=== PATIENT | female | born 1975 | race Caucasian/White ===

== ENCOUNTER 2024-02-02 08:26 | Outpatient (AMB) | payer OTHER, SELFPAY ==
--- NOTE | 2024-02-02 08:35 | MHC.OFFWIV ---
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 While every effort has been made to ensure accuracy, measuring machine operator errors may have been included. The patient is a 48 year old female who presents to the clinic today with three-month history of intermittent dizziness. She notes that she is chronically treated for hypothyroid and is overdue for her labs which she plans to obtained today. She follows her PCP, but is delayed on follow-up due to her PCP changing locations where she works. She did obtain an appointment with her PCP for next month. She notes that she works out 3 to 5 times a week, working out does not seem to exacerbate the symptoms. At 1st she thought it was a dehydration situation, so she did increase her hydration which did not seem to improve the symptoms. She denies chest pain, room spinning, confusion, headache. She notes she had been on the generic Ozempic starting in September, but has been off of that for the last 2 months. Symptoms are continuing despite being off the medication. She also notes that between Ozempic and working out, she has lost a lot of weight, but has not had her levothyroxine dose adjusted due to not having labs quite yet. [facility] Social History Patient Tobacco Use Status: Never used Tobacco Review of Systems Const All systems reviewed & are unremarkable except as noted in HPI and below Physical Exam Vital Signs: Last Vital Signs Temp 97.9 F 02/02/24 08:36 Pulse 70 02/02/24 08:36 BP 118/72 02/02/24 08:36 Pulse Ox 98 02/02/24 08:36 BMI result Body Mass Index 30.4 Const General: cooperative, healthy appearing, comfortable, no acute distress and alert Orientation/consciousness: patient oriented x3 Limitations: no limitations HEENT Head: Yes normal to inspection and Yes normocephalic Ears: hearing grossly normal bilaterally General nose exam: Normal external nose present Face and sinus: Yes normal facial exam and Yes sinuses nontender Mouth: Normal oral and palatal mucosa present and tongue normal Teeth and gingiva: dentition normal Throat: Yes posterior oropharynx normal Eyes General: appearance normal, both eyes and all related structures Neck Neck: Yes normal visual inspection, Yes full ROM and Yes no lymphadenopathy Resp Effort & Inspection: normal respiratory effort and able to speak in complete sentences Auscultation: clear to auscultation bilaterally Cardio Jugular venous distension: no JVD Palpation: normal PMI Rate: regular rate Heart sounds: S1 normal heart sound present, S2 normal heart sound present, no click, no gallops, no murmurs and no rubs GI Inspection: Yes normal to inspection Palpation (GI): Soft to palpation and nontender Percussion: Yes normal to percussion Auscultation: normal bowel sounds Skin General skin exam: no rashes or lesions noted, elasticity normal and turgor normal Neuro General: patient oriented x3, CN's II-XI intact bilaterally and [place] Hallpike (Positive, horizontal nystagmus present.) Extrem General: Yes normal to inspection, Yes full ROM, Yes capillary refill normal and Yes normal exam except as noted Psych Appearance: grossly normal Mental Status: mental status grossly normal Speech and movement: Normal speech and movement present Affect: normal affect Assessment & Plan Assessment & Plan (1) Vertigo: Code(s): R42 - Dizziness and giddiness Plan: Advised obtaining thyroid labs as previously ordered by PCP, plans to do this today. Discussed multitude of potential causes, she will continue to follow with PCP as planned. We will treat symptomatically with meclizine p.r.n. advised ER with on resolving dizziness, chest pain, palpitations. Plan See above for full details and plan. Medications: New meclizine 12.5 mg PO TID 5 days PRN 15 tabs 0RF dizziness Coding Level of Care Code New Pt Level 3 (54227) Diagnoses Vertigo R42
[2024-02-02 08:36] VITALS: BP 118/72; PULSE 70; TEMP 36.6; O2SAT 98; BMI 30.4
== END 2024-02-02 09:07 | disposition home or self-care (01) ==
PROVIDERS: PCP Internal Medicine; Visit Provider Registered Nurse
DX: R42 Dizziness and giddiness (principal)
CPT/HCPCS: 99203

== ENCOUNTER 2024-02-17 14:35 | Outpatient (AMB) | payer OTHER, SELFPAY ==
--- NOTE | 2024-02-17 14:43 | A.OFFPC_ITS ---
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 Allergies cefaclor [From Ceclor] Allergy (Mild, Verified 02/17/24 14:48) Hives propranolol Allergy (Mild, Verified 02/17/24 14:48) Vomiting Tobacco use date assessed: 02/17/24 Dental Screening Dental Screen Date: 02/17/24 Did you have a dental visit in the last 12 months?: Yes Did you have a dental problem in the last 6 months where you did not have access to dental care?: No Was dental information given to patient?: Patient has dentist HPI HPI Comments History of Present Illness Details Patient is a 42 female with a past medical history with cervical radiculopathy, right knee pain, right elbow pain, history of BA, history of thyroid cancer presenting for follow-up She has been dizzy lately. She fell recently and injured her left shoulder. She broke the right thumb. She had xray of the left shoulder which did no identify any fracture. She has limited mobility and stregnth of the left shoulder. difficult raising the arm She was seen by Dr Johnson yesterday. Explains the dizziness as vertigo. Increases with rotations of the head, bending over/getting up, Denies lighteadedness. Denies chest pain, palpitations. Does endorse a few headaches per month which is mostly left sided. Reports last vision check 2 years ago. Chronic pain OA -knee pain she follows with [facility] for knee pain. She has received injections in the past. She has had MRI in the past. At her last visit she asked for a referral to [facility] to review MRI. Neck pain: History of ACDF at C5-C6 and C6-C7. She continues with paranoid spine and support. She has seen [facility], undergone PT, facet injections. Has gabapentin. Not taking tramadol. She is also taking ibuprofen extra-strength Tylenol daily. We repeated the MRI of her cervical spine. Impression unchanged with previous study. Neurosurgery was seen and do not see any role for surgical intervention. 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 History of carpal tunnel. She has had an injection of the right elbow but advised against another because it looked like there was some muscular atrophy. Hypothyroid: Post surgical papillary thyroid cancer. Now following with Endocrine. On levothyroxine. TSH 01/2024 was 0 5 Mammogram: Was ordered Cologuard ROS see HPI PHYSICAL EXAM: GENERAL: Alert and oriented x 3. NAD EYES: EOMI. Anicteric. HENT: Moist mucous membranes. No scleral icterus. No cervical lymphadenopathy. LUNGS: Clear to auscultation bilaterally. CARDIOVASCULAR: Regular rate and rhythm. No murmur. No JVD. ABDOMEN: Soft, non-tender +bs EXTREMITIES: No edema. Non-tender. MSK: unable to abduct left arm SKIN: No rashes or lesions. Warm. NEUROLOGIC: No focal neurological deficits. CN II-XII grossly intact PSYCHIATRIC: Cooperative. Appropriate mood and affect [facility] Surgical History Hx of spinal fusion Hx of tubal ligation History of carpal tunnel release Hx of thyroidectomy Hx of cholecystectomy Social History Housing: Apartment Patient Tobacco Use Status: Never used Tobacco Current occupational status: employed Cognitive needs: No Hearing needs: No Vision needs: Yes Questionnaire AUDIT C Alcohol Use Questionnaire (AUDIT-C) 1. How often do you have a drink containing alcohol?: Monthly or less 2. How many drinks containing alcohol do you have on a typical day when you are drinking?: 1 or 2 3. How often do you have six or more drinks on one occasion?: Never Total Score: 1 Score Reviewed/Action Taken: No Physical exam (Primary Care) Vital Signs: Last Vital Signs Pulse 84 02/17/24 14:45 BP 126/82 02/17/24 14:45 Pulse Ox 98 02/17/24 14:45 Oxygen Delivery Method Room Air 02/17/24 14:45 BMI result Body Mass Index 32.1 Tobacco/Smoking Status: Tobacco use Status Tobacco use date assessed 02/17/24 02/17/24 14:56 Patient Tobacco Use Status Never used Tobacco 02/17/24 14:44 Assessment and Plan Assessment & Plan (1) Left arm pain: Code(s): M79.602 - Pain in left arm (2) Left arm weakness: Code(s): R29.898 - Other symptoms and signs involving the musculoskeletal system Plan: Continue left shoulder pain Following with orthopedics Limited strength and mobility. PT as tolerated. MRI ordered (3) Left shoulder pain: Code(s): M25.512 - Pain in left shoulder Qualifiers: Chronicity: acute Qualified Code(s): M25.512 - Pain in left shoulder (4) Vertigo: Code(s): R42 - Dizziness and giddiness Plan: MRI brain given headaches, vertigo Referral to vestibular rehab Recommend updating vision exam (5) New onset of headaches: Code(s): R51.9 - Headache, unspecified Orders: Orders MR shoulder LT wo con 02/17/24 M25.512 - Pain in left shoulder, M79.602 - Pain in left arm, R29.898 - Other symptoms and signs involving the musculoskeletal system, W19.XXXA - Unspecified fall, initial encounter PT Evaluation and Treatment 02/17/24 M25.512 - Pain in left shoulder, M79.602 - Pain in left arm, R29.898 - Other symptoms and signs involving the musculoskeletal system, W19.XXXA - Unspecified fall, initial encounter MR head/brain wo con 02/17/24 R42 - Dizziness and giddiness, R51.9 - Headache, unspecified Coding Level of Care Code Est Pt Level 5 (08353) Diagnoses Left arm pain M79.602 Left arm weakness R29.898 Acute pain of left shoulder M25.512 Chronicity: acute Vertigo R42 New onset of headaches R51.9
[2024-02-17 14:45] VITALS: BP 126/82; PULSE 84; O2SAT 98; BMI 32.1
== END 2024-02-17 15:39 | disposition home or self-care (01) ==
PROVIDERS: PCP Internal Medicine; Visit Provider Internal Medicine
DX: M79.602 Pain in left arm (principal); R29.898 Other symptoms and signs involving the musculoskeletal system; M25.512 Pain in left shoulder; R42 Dizziness and giddiness; R51.9 Headache, unspecified
CPT/HCPCS: 99214

== ENCOUNTER 2024-03-22 18:49 | Outpatient (REF) | payer OTHER, SELFPAY ==
--- NOTE | ~2024-03-22 | MR_ITS ---
MRI OF THE BRAIN WITHOUT IV CONTRAST INDICATION: Dizziness. COMPARISON: None available. TECHNIQUE: Multiplanar multisequence MR imaging of the brain was obtained without IV contrast. FINDINGS: There is no hydrocephalus, extra-axial surface collection, or herniation. No parenchymal signal abnormality. The major flow voids at the skull base are preserved. There is no acute infarct on diffusion-weighted imaging. There is no intracranial hemorrhage on the gradient recalled echo acquisition. The midline structures are normal. The cerebellar tonsils are normally positioned. The cerebellum and brainstem are normal. The craniocervical junction is normal. Osseous marrow signal intensity is homogenous. The visualized soft tissues are unremarkable. MR/MR head/brain wo con IMPRESSION: Unremarkable noncontrast MRI of the brain. Electronically signed by: Ayan Arthur MD 04/09/2024 01:19 PM EDT
== END 2024-03-22 18:50 | disposition home or self-care (01) ==
LOC: HO.MRI 18:49
PROVIDERS: PCP Internal Medicine; Visit Provider Internal Medicine
DX: R42 Dizziness and giddiness (principal); R51.9 Headache, unspecified
CPT/HCPCS: 70551

== ENCOUNTER 2024-08-07 09:13 | Outpatient (AMB) | payer OTHER, SELFPAY ==
--- NOTE | 2024-08-07 09:49 | A.OFFPC_ITS ---
Vital Signs 08/07/24 09:57 Height 5 ft 4 in Weight 198 lb BMI 34.0 BP 116/80 Blood Pressure Location Rt brachial Position Sitting Pulse 83 Pulse Source Pulse Oximeter Temp 98 F Temp Source Oral Pulse Oximetry (%) 99 Oxygen Delivery Method Room Air Intake Visit Reasons: hair loss Intake Note: Hair loss. Sore's in mouth and sore throat. Allergies cefaclor [From Ceclor] Allergy (Mild, Verified 08/07/24 09:57) Hives propranolol Allergy (Mild, Verified 08/07/24 09:57) Vomiting Tobacco use date assessed: 02/17/24 Dental Screening Dental Screen Date: 02/17/24 HPI HPI Comments History of Present Illness Details Patient is a 42 female with a past medical history with cervical radiculopathy, right knee pain, right elbow pain, history of OA, history of thyroid cancer presenting for follow-up Sore throat, tongue blistering x one week. Chronic hard spot on the right lat eral to the tip of the tongue Chronic pain OA -knee pain she follows with [facility] for knee pain. She has received injections in the past. She has had MRI in the past. At her last visit she [facility]. Neck pain: History of ACDF at C5-C6 and C6-C7. She continues with paranoid spine and support. She has seen [facility], undergone PT, facet injections. Has gabapentin. Not taking tramadol. She is also taking ibuprofen extra-strength Tylenol daily. We repeated the MRI of her cervical spine. Impression unchanged with previous study. Neurosurgery was seen and do not see any role for surgical intervention. 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 History of carpal tunnel. She has had an injection of the right elbow but advised against another because it looked like there was some muscular atrophy. -Shoulder pain -followed with Dr Johnson Hypothyroid: Post surgical papillary thyroid cancer. Now following with [facility]. On levothyroxine. Vertigo: Lessened. MRI brain 03/2024 was unremarkable. Mammogram: Was ordered Cologuard ROS see HPI PHYSICAL EXAM: GENERAL: Alert and oriented x 3. NAD EYES: EOMI. Anicteric. HENT: Moist mucous membranes. No scleral icterus. No cervical lymphadenopathy. LUNGS: Clear to auscultation bilaterally. CARDIOVASCULAR: Regular rate and rhythm. No murmur. No JVD. ABDOMEN: Soft, non-tender +bs EXTREMITIES: No edema. Non-tender. MSK: unable to abduct left arm SKIN: No rashes or lesions. Warm. NEUROLOGIC: No focal neurological deficits. CN II-XII grossly intact PSYCHIATRIC: Cooperative. Appropriate mood and affect [facility] Surgical History Hx of spinal fusion Hx of tubal ligation History of carpal tunnel release Hx of thyroidectomy Hx of cholecystectomy Social History Housing: Apartment Patient Tobacco Use Status: Never used Tobacco Current occupational status: employed Cognitive needs: No Hearing needs: No Vision needs: Yes Questionnaire PHQ-9 Over the last 2 weeks, how often have you been bothered by any of the following problems? 1. Little interest or pleasure in doing things: not at all 2. Feeling down, depressed, or hopeless: not at all 3. Trouble falling or staying asleep, or sleeping too much: not at all 4. Feeling tired or having little energy: several days 5. Poor appetite or overeating: several days 6. Feeling bad about yourself - or that you are a failure or have let yourself or your family down: not at all 7. Trouble concentrating on things, such as reading the newspaper or watching television: not at all 8. Moving or speaking so slowly that other people could have noticed. Or the opposite - being so fidgety or restless that you have been moving around a lot more than usual: not at all 9. Thoughts that you would be better off or of hurting yourself in some way: not at all Total score: 2 Source: Developed by Drs. Jb Smith, Megan Knott, Mg Johnson and colleagues, with an educational eddie from [employer]. Thrive Questionnaire I am a: Patient What is your living situation today?: I have a steady place to live Within the past 12 months, did the food you bought not last and you didn't have the money to get more?: Never true Within the past 12 months, did you worry whether your food would run out before you got money to buy more?: Never true Do you have trouble paying for medicines?: No Do you have trouble getting transportation to medical appointments?: No Do you have trouble paying your heating and electricity bill?: No Do you have trouble taking care of your child, family member or friend?: No Do you have trouble with day-to-day activities such as bathing, preparing meals, shopping, managing finances, etc.?: No Are you currently unemployed and looking for a job?: No Are you interested in more education?: No Please select the resources that you would like help with: None Currently or been in a relationship where the following occur: I choose not to answer THRIVE Score: 0 AUDIT C Alcohol Use Questionnaire (AUDIT-C) 1. How often do you have a drink containing alcohol?: 2-3 times a week 2. How many drinks containing alcohol do you have on a typical day when you are drinking?: 1 or 2 3. How often do you have six or more drinks on one occasion?: Never Total Score: 3 EDEMLIRA-7 AMB Questionnaire EDELMIRA-7 Feeling nervous, anxious, or on edge: 1 = Several days Not being able to stop or control worryin = Several days Worrying too much about different things: 0 = Not at all Trouble relaxin = Several days Being so restless that it is hard to sit still: 0 = Not at all Becoming easily annoyed or irritable: 1 = Several days Feeling afraid as if something awful might happen: 0 = Not at all Total EDELMIRA-7 score (0-4 normal; 5-9 mild; 10-14 moderate; 15-21 severe): 4 Source: Developed by Drs. Jb Smith, Megan Knott, Mg Johnson and colleagues, with an educational eddie from [employer]. Physical exam (Primary Care) Vital Signs: Last Vital Signs Temp 98 F 08/07/24 09:57 Pulse 83 08/07/24 09:57 BP 116/80 08/07/24 09:57 Pulse Ox 99 08/07/24 09:57 Oxygen Delivery Method Room Air 08/07/24 09:57 BMI result Body Mass Index 34.0 Tobacco/Smoking Status: Tobacco use Status Tobacco use date assessed 02/17/24 08/07/24 09:50 Patient Tobacco Use Status Never used Tobacco 08/07/24 09:50 PHQ-9: PHQ-9 Score PHQ-9: Total score 2 08/13/24 14:30 Currently or been in a relationship where the following occur: I choose not to answer Coding Level of Care Code Est Pt Level 4 (07506) Diagnoses Tongue lesion K14.8 Hypothyroidism, unspecified type E03.9 Hypothyroidism type: unspecified Assessment & Plan Assessment & Plan (1) Tongue lesion: Code(s): K14.8 - Other diseases of tongue Category: Medical Plan: Referral placed to oral surgery For acute oral lesions-viscous lidocaine ordered. Trial valtrex (2) Hypothyroid: Code(s): E03.9 - Hypothyroidism, unspecified Category: Medical Qualifiers: Hypothyroidism type: unspecified Qualified Code(s): E03.9 - Hypothyroidism, unspecified Plan: stable on levothyroxine Orders: Orders TSH reflex Free T4 08/10/24 E03.9 - Hypothyroidism, unspecified Referrals Oral Surgery Referal K14.8 - Other diseases of tongue Medications: New lidocaine HCl 2% (Lidocaine Viscous) 1 appl mucous membrane BID-TID PRN 300 mL 1RF pain valacyclovir (Valtrex) 1,000 mg PO BID 6 tabs 0RF 3 days
--- OUTSIDE RECORDS SUMMARY | 2024-08-07 09:49 | XMS_ITS | Continuity of Care Document ---
Author Organization MARCEL Vasiliy [facility], WILIAN Whitten PT Address [address] [place] [address] Care Team Providers Care Radiologic Technologist Name Role Phone IVET POTTER Primary Care Provider [phone] Assessment Encounter Date Assessment Date Assessment LastModified by Organization Details LastModified Time 08/03/2024 08/03/2024 A: Pt with limited left shoulder ROM and end range pain in the scaption plane. Able to complete all given ther ex's with moderate fatigue. P:Continue with POC, progress as tolerated. [email or web address] Not available 08/03/2024 09:51:22 Plan of Treatment Reminders Order Date Submit Date Provider Last Modified By Organization Details Last Modified Time Details Appointments RECHECK 10 2024 01:00P Lori Johnson MD Not available Not available Not available PT FOLLOW-U P 2024 01:00P Lori Campos OTR OWNER OPERATOR Not available Not available Not available PT FOLLOW-U P 2024 12:30P Lori Campos OTR OWNER OPERATOR Not available Not available Not available PT FOLLOW-U P 2024 01:00P Lori Campos OTR OWNER OPERATOR Not available Not available Not available PT FOLLOW-U P 2024 12:30P Lori Campos OTR OWNER OPERATOR Not available Not available Not available PT FOLLOW-U P 2024 01:00P Lori Campos OTR OWNER OPERATOR Not available Not available Not available PT FOLLOW-U P 2024 01:00P Lori Glover DPT Not available Not available Not available PT FOLLOW-U P 2024 11:30A Lori Glover DPT Not available Not available Not available Lab None recorded . Referral None recorded . Procedures None recorded . Surgeries None recorded . Imaging None recorded . Medication Orders None recorded . Patient TargetsNo targets recorded. Patient InstructionsNo instructions recorded. Reason for Referral None Reported. Results Created Date Observation Date Name Description Value Unit Range Abnormal Flag Note LastModifiedBy Organization Detail LastModifiedTime 07/06/20 24 07/04/2024 MRI, cervi stephanie spine , w/o contr ast [facility] Access ion Number : [id number] Patien t Name: Claire Almeida Record Number : [id number] Date of : 1975 Date of Exam: 2023 Referr ing Physic tulio: [facility] [address], [address] [facility] [place] [address] Exam: MR Cervic al Spine (C-) CPT 13144 Room Descri ption: [place] GE Pion 3T HISTOR Y: Cervic algia. Left arm pain and parest hesias . TECHNI QUE: Multip lanar multis equenc e MRI of the cervic al spine withou t contra st. COMPAR VANDA: 021 FINDIN GS: Mild revers al of the cervic al lordos is. Status post ACDF at C5-C6. The cervic al verteb ral bodies are normal in height . The remain janette of the cervic al discs are simila r in height . No marrow or parasp inal edema on the sagitt al STIR images . The visual ized security screener ior crania l fossa struct ures and cervic omedul kirk juncti on are unrema rkable . Focal promin ence of the centra l canal of the lower cervic al cord at C7, unchan ged. The parasp inal soft tissue s and visual ized verteb ral artery flow voids are simila r. C2-C3: No centra l canal or forami nal stenos is. C3-C4: A centra l disc protru nathan. Left facet arthro sis. No right and mild left forami nal narrow ing. C4-C5: A centra l disc extrus ion extend ing above the level of the disc space is simila r with mild centra l canal narrow ing. No forami nal stenos is. Mild left facet arthro sis. C5-C6: Status post ACDF. No new centra l canal or forami nal stenos is. C6-C7: Right uncove rtebra l spurri ng. No centra l canal stenos is. Mild right and no left forami nal narrow ing. C7-T1: Small centra l disc protru nathan. This probab ly presen t on the prior examin ation. No signif icant centra l canal or forami nal narrow ing. IMPRES NATHAN: Degene rative and postop erativ e change s of the cervic al spine. No new cord compre ssion or new forami nal stenos is. No nerve root imping ement. Electr onical ly Signed By: Costa Carlson MD [email or web address] [facility] ([facility]) [address], [place], [address], 07/19/2024 11:41:56 Result Notes None recorded. Problems Name Problem SNOMED Code Status Onset Date Resolution Date Notes Provider Name and Address Organization Details Recorded Time No complaints 071119685 Active Status : 'I'; Not Available [facility] 4 09:16:04 Impingemen t syndrome of left shoulder region 5614008313034 04 Active 2023 Heber Johnson MD [address], [facility] [place], [address] , [facility] 4 10:37:10 Problem Notes None recorded. Procedures Surgical History Date Name Laterality Status Provider Name and Address Organization Details Recorded Time 08/03/19 08751 Therapeutic Exercise (1:1) completed Leida Campos OTR OWNER OPERATOR [address], [place], [address], [facility] 08/03/2024 09:51:42 08/03/19 94273: Hot or Cold Pack completed Leida Campos OTR OWNER OPERATOR [address], [place], [address], [facility] 08/03/2024 08:48:44 08/03/19 29710: Manual therapy completed Leida Campos PTA [address], [place], [address], [facility] 08/03/2024 09:51:46 07/30/19 96479 Therapeutic Exercise (1:1) completed Leida Campos PTA [address], [place], [address], [facility] 07/27/2024 16:43:09 07/30/19 31918: Hot or Cold Pack completed Leida Campos PTA [address], [place], [address], [facility] 07/30/2024 15:57:14 07/30/19 88431: Manual therapy completed Leida Campos PTA [address], [place], [address], [facility] 07/27/2024 16:43:09 07/27/19 38951 Therapeutic Exercise (1:1) completed Ivet Glover DPT [address], [place], [address], [facility] 07/27/2024 14:25:59 07/27/19 28367: Hot or Cold Pack completed Ivet Glover DPT [address], [place], [address], [facility] 07/27/2024 14:26:14 07/27/19 66474: Manual therapy completed Ivet Glover DPT [address], [place], [address], [facility] 07/27/2024 14:25:34 07/23/19 91115 Therapeutic Exercise (1:1) completed Ivet Glover DPT [address], [place], [address], [facility] 07/23/2024 14:10:05 07/23/19 73494: Low complexity PT Eval completed Ivet Glover DPT [address], [place], [address], [facility] 07/23/2024 14:10:08 05/03/20 24 PM Shoulder Kenalog 2cc Injection Unilateral completed Heber Johnson MD [address], [place], [address], [facility] 05/03/2024 11:48:04 03/14/20 24 Cast_Thumb Spica_11+ completed BASSAM JOSROSHAN [facility] 03/14/2024 13:58:29 03/14/20 24 Cast Removal completed BASSAMRAVIN ARGUELLOAIDEINI [facility] 03/14/2024 13:57:20 03/07/20 24 Cast_Thumb Spica_11+ completed Alyssa Petlock [facility] 03/07/2024 13:58:51 03/07/20 24 Cast Removal completed Alyssa Petlock [facility] 03/07/2024 13:57:12 02/16/20 24 Sports Shoulder 4&1 completed Heber Johnson MD [address], [place], [address], [facility] 02/16/2024 10:37:21 Imaging Results None recorded. Procedure Notes None recorded. Medical Equipment None Reported. Allergies Allergen ID Allergen Name Allergen Category Reaction Reaction Severity Criticality Documentation Date Start Date Code Code System Note Provider Name and Address Organization Details Recorded Time 124298 propranol ol medicatio n Not available Not available Not available 04/26/2024 8787 [facility] 4 09:03:51 52252 Ceclor medicatio n Not available Not available Not available 09/19/2023200963 5 RxNorm Aller gyRea ction : 'Skin React ion'; Not Available [facility] 13:27:45 Medications Name Sig Start Date Stop Date Status Note LastModified by Organization Details LastModified Time cyclobenzap rine 10 mg tablet 02/07 completed Not Available Not Available Not Available prednisone 10 mg tablet active Not Available Not Available Not Available ibuprofen 800 mg tablet TAKE 1 TABLET BY MOUTH EVERY 8 HOURS NEEDED FOR PAIN active Not Available Not Available No t Available prednisone 20 mg tablet 03/22 completed Not Available Not Available Not Available meclizine 12.5 mg tablet TAKE 1 TABLET BY MOUTH THREE TIMES DAILY FOR 5 DAYS NEEDED FOR DIZZINESS 02/07 completed Not Available Not Available Not Available triamcinolo ne acetonide 0.1 % topical cream APPLY TO AFFECTED AREAS TWICE DAILY FOR 2-4 WEEKS AND NEEDED active Not Available Not Available No t Available prednisone 10 mg tablets in a dose pack as directed 6 YKk0mffw, 5 ZRh2supg, 4 PO x2days, 3 ZJe6uehe, 2 RDm5xrjr, 1 KZp1ypgx 2023 active Not Available Not Available Not Avai lable clotrimazol e-betametha sone 1 %-0.05 % topical cream APPLY TOPICALLY TO THE AFFECTED AREA TWICE DAILY FOR 14 DAYS NOT TO BE USED LONGER THAN 2 WEEKS 02/07 completed Not Available Not Available Not Available hydroxyzine HCl 25 mg tablet 02/07 completed Not Available Not Available Not Available levothyroxi ne 200 mcg tablet TAKE 1 TABLET BY MOUTH DAILY active Not Available Not Available No t Available halobetasol propionate 0.05 % topical cream APPLY TO ARMS AND LEGS TWICE DAILY FOR UP TO 4 WEEKS THEN NEEDED active Not Available Not Available No t Available Tylenol active Not Available Not Avail able Not Available [place] [facility] 08/06 (28) 1 mg-20 mcg (21)/75 mg (7) tablet TAKE 1 TABLET BY MOUTH EVERY DAY active Not Available Not Available No t Available Vitals None Recorded Social History None recorded. Functional Status None recorded. Mental Status None recorded. Family History Nothing Reported. Medical History No medical history recorded. Gynecological HistoryNo gynecological history recorded. Obstetrics History GPAL:G 0 P 0 0 0 0 Past Encounters Encounter ID Performer Location Encounter Start Date Encounter Closed Date Diagnosis/Indication Diagnosis SNOMED-CT Code Diagnosis ICD10 Code Diagnosis Note [id number] [place] [address] 07/23/2024 13:13:01 07/23/2024 14:17:36 Impingement syndrome of left shoulder region 6139318814 44396 M75.42 [id number] [place] [address] 07/27/2024 12:53:34 07/27/2024 14:40:59 Impingement syndrome of left shoulder region 5311500977 94703 M75.42 [id number] [facility] [address] [place] [address] 07/30/2024 13:13:14 07/30/2024 16:02:45 Impingement syndrome of left shoulder region 8595235216 69584 M75.42 [id number] [facility] [address] [place] [address] 08/03/2024 08:46:56 08/03/2024 09:52:49 Impingement syndrome of left shoulder region 9690743524 28330 M75.42 Health Concerns Section Related Observation LastModified by Organization Detai ls LastModified Time None Recorded Concern Status LastModified by Organization Details LastModified Time None Recorded Payers Encounter Date Sequence Insurance Name Policy Number Policy Dunaway Covered Member ID Dunaway Member ID Guarantor Name 08/03/2024 1 [facility] [employer] [facility] TYPE I (HMO) [id number] Cary Almeida [id number] 01 Cary Almeida Notes Date Note Type Note Provider Name and Address Organization Details Recorded Time 08/03/2024 text/html Pt rates 6/10 left shoulder pain coming into therapy. Leida Campos, OTR OWNER OPERATOR [address], [place], [address], [facility] 08/03/2024 09:52:23 OBGyn Episode No OBEpisode recorded.
[2024-08-07 09:57] VITALS: BP 116/80; PULSE 83; TEMP 36.6; O2SAT 99; BMI 34.0
== END 2024-08-07 11:45 | disposition home or self-care (01) ==
PROVIDERS: PCP Internal Medicine; Visit Provider Internal Medicine
DX: K14.8 Other diseases of tongue (principal); E03.9 Hypothyroidism, unspecified

== ENCOUNTER → 2024-08-07 09:13 | Outpatient (BNVA) | payer OTHER, SELFPAY | PROVIDERS: PCP Internal Medicine; Visit Provider Internal Medicine | DX: K14.8 Other diseases of tongue (principal); L65.9 Nonscarring hair loss, unspecified; E03.9 Hypothyroidism, unspecified | CPT/HCPCS: 99212 ==

== ENCOUNTER 2024-08-10 12:38 | Outpatient (REF) | payer OTHER, SELFPAY ==
[2024-08-10 15:29] LABS: TSH reflex Free T4 3.77 uIU/mL (0.32-4.0)
== END 2024-08-10 12:39 | disposition home or self-care (01) ==
LOC: HO.WFDLDS 12:38
PROVIDERS: Visit Provider Internal Medicine
DX: E03.9 Hypothyroidism, unspecified (principal)
CPT/HCPCS: 36415; 84443

== ENCOUNTER → 2024-08-14 09:40 | Outpatient (BNV) | payer OTHER, SELFPAY | PROVIDERS: PCP Internal Medicine; Visit Provider Internal Medicine | DX: J02.9 Acute pharyngitis, unspecified (principal) ==

== ENCOUNTER 2025-05-24 14:56 | Outpatient (AMB) | payer OTHER, SELFPAY ==
--- NOTE | 2025-05-24 15:04 | MHC.PC.OV ---
Vital Signs 05/24/25 15:05 Height 5 ft 4 in Weight 199 lb 4 oz BMI 34.2 BP 118/72 Blood Pressure Location Rt brachial Position Sitting Respiration 14 Pulse 73 Pulse Source Pulse Oximeter Pulse Oximetry (%) 97 Oxygen Delivery Method Room Air Intake Visit Reasons: depression and anxiety Intake Note: Depression and anxiety Air Conditioning Sheet Metal Installer Required: No Allergies cefaclor (From Ceclor) Allergy (Mild, Verified 05/24/25 15:07) Hives propranolol Allergy (Mild, Verified 05/24/25 15:07) Vomiting Tobacco use date assessed: 05/24/25 Dental Screening Dental Screen Date: 05/24/25 Did you have a dental visit in the last 12 months?: Yes Did you have a dental problem in the last 6 months where you did not have access to dental care?: No Was dental information given to patient?: Patient has dentist HPI HPI Comments History of Present Illness Details Patient is a 42 female with a past medical history with cervical radiculopathy, right knee pain, right elbow pain, history of OA, history of thyroid cancer, anxiety presenting for follow-up Patient reports increased anxiety over the past 6 months. She has been on and off SSRIs in the past. For quite a long time she was doing well on prozac. She believes she had gone as high as 60mg in the past. She transitioned to wellbutrin at some and did not tolerate this and decided to just stop the medications. Chronic pain OA -knee pain she follows with [facility] for knee pain. She has received injections in the past. She has had MRI in the past. At her last visit she asked for a referral to [facility] to review MRI. Neck pain: History of ACDF at C5-C6 and C6-C7. She continues with paranoid spine and support. She has seen [facility], undergone PT, facet injections. Has gabapentin. Not taking tramadol. She is also taking ibuprofen extra-strength Tylenol daily. We repeated the MRI of her cervical spine. Impression unchanged with previous study. Neurosurgery was seen and do not see any role for surgical intervention. 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 History of carpal tunnel. She has had an injection of the right elbow but advised against another because it looked like there was some muscular atrophy. -Shoulder pain -followed with Dr Johnson Hypothyroid: Post surgical papillary thyroid cancer. Now following with Endocrine. On levothyroxine. Vertigo: Lessened. MRI brain 03/2024 was unremarkable. Mammogram: Was ordered Cologuard ROS see HPI PHYSICAL EXAM: GENERAL: Alert and oriented x 3. NAD EYES: EOMI. Anicteric. HENT: Moist mucous membranes. No scleral icterus. No cervical lymphadenopathy. LUNGS: Clear to auscultation bilaterally. CARDIOVASCULAR: Regular rate and rhythm. No murmur. No JVD. ABDOMEN: Soft, non-tender +bs EXTREMITIES: No edema. Non-tender. MSK: unable to abduct left arm SKIN: No rashes or lesions. Warm. NEUROLOGIC: No focal neurological deficits. CN II-XII grossly intact PSYCHIATRIC: Cooperative. 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 1. Little interest or pleasure in doing things: more than half the days 2. Feeling down, depressed, or hopeless: more than half the days 3. Trouble falling or staying asleep, or sleeping too much: nearly every day 4. Feeling tired or having little energy: nearly every day 5. Poor appetite or overeating: more than half the days 6. Feeling bad about yourself - or that you are a failure or have let yourself or your family down: not at all 7. Trouble concentrating on things, such as reading the newspaper or watching television: several days 8. Moving or speaking so slowly that other people could have noticed. Or the opposite - being so fidgety or restless that you have been moving around a lot more than usual: not at all 9. Thoughts that you would be better off or of hurting yourself in some way: not at all Total score: 13 Depression Screening Interpretation: Positive Depression Screening Done: Yes 83535 - PHQ-9 Billing: Yes Source: Developed by Drs. Jb Smith, Megan Knott, Mg Johnson and colleagues, with an educational eddie from [employer]. Thrive Questionnaire Date Thrive assessed: 05/24/25 I am a: Patient What is your living situation today?: I have a steady place to live Within the past 12 months, did the food you bought not last and you didn't have the money to get more?: Never true Within the past 12 months, did you worry whether your food would run out before you got money to buy more?: Never true Do you have trouble paying for medicines?: No Do you have trouble getting transportation to medical appointments?: No Do you have trouble paying your heating and electricity bill?: No Do you have trouble taking care of your child, family member or friend?: No Do you have trouble with day-to-day activities such as bathing, preparing meals, shopping, managing finances, etc.?: No Are you currently unemployed and looking for a job?: No Are you interested in more education?: No Please select the resources that you would like help with: None Currently or been in a relationship where the following occur: I choose not to answer THRIVE Score: 0 AUDIT C Alcohol Use Questionnaire (AUDIT-C) 1. How often do you have a drink containing alcohol?: 2-4 times a month 2. How many drinks containing alcohol do you have on a typical day when you are drinking?: 1 or 2 3. How often do you have six or more drinks on one occasion?: Never Total Score: 2 EDELMIRA-7 AMB Questionnaire EDELMIRA-7 Date EDELMIRA - 7 assessed: 05/24/25 Feeling nervous, anxious, or on edge: 3 = Nearly every day Not being able to stop or control worryin = More than half the days Worrying too much about different things: 2 = More than half the days Trouble relaxin = Nearly every day Being so restless that it is hard to sit still: 1 = Several days Becoming easily annoyed or irritable: 3 = Nearly every day Feeling afraid as if something awful might happen: 3 = Nearly every day Total EDELMIRA-7 score (0-4 normal; 5-9 mild; 10-14 moderate; 15-21 severe): 17 Source: Developed by Drs. Jb Smith, Megan Knott, Mg Johnson and colleagues, with an educational eddie from [employer]. EDELMIRA-7 Assessment Billing EDELMIRA-7 Assessment Tool: EDELMIRA-7 Assessment 09906 Physical exam (Primary Care) Vital Signs: Last Vital Signs Pulse 73 05/24/25 15:05 Resp 14 05/24/25 15:05 BP 118/72 05/24/25 15:05 Pulse Ox 97 05/24/25 15:05 Oxygen Delivery Method Room Air 05/24/25 15:05 BMI result Body Mass Index 34.2 Tobacco/Smoking Status: Tobacco use Status Tobacco use date assessed 05/24/25 05/24/25 15:14 Patient Tobacco Use Status Never used Tobacco 05/24/25 15:14 e-Cigarette/Vaping Use Never Used 05/24/25 15:14 PHQ-9: PHQ-9 Score PHQ-9: Total score 13 05/24/25 15:30 Depression Screening Interpretation: Positive Thrive Assessment: Date of Thrive Assessment Date Thrive assessed 05/24/25 05/24/25 15:18 Currently or been in a relationship where the following occur: I choose not to answer Coding Level of Care Code Est Pt Level 4 (58067) Complex EM visit Add On G2211 Diagnoses Anxiety F41.9 Additional Codes EDELMIRA-7 Assessment Billing - EDELMIRA-7 Assessment Tool: EDELMIRA-7 Assessment 70286 ([id number]) PHQ-9 - 56882 - PHQ-9 Billing: Yes ([id number]) Assessment & Plan Assessment & Plan (1) Anxiety: Code(s): F41.9 - Anxiety disorder, unspecified Category: Medical Plan Anxiety Start prozac 10mg daily for one week then increase to 20mg daily She has an upcoming physical-can follow up on dosing at that time Orders: Orders Complete Blood Count Auto Diff 05/24/25 E03.9 - Hypothyroidism, unspecified, Z13.0 - Encounter for screening for diseases of the blood and blood-forming organs and certain disorders involving the immune mechanism, Z13.220 - Encounter for screening for lipoid disorders, Z13.228 - Encounter for screening for other metabolic disorders Comprehensive Met. Panel 05/24/25 E03.9 - Hypothyroidism, unspecified, Z13.0 - Encounter for screening for diseases of the blood and blood-forming organs and certain disorders involving the immune mechanism, Z13.220 - Encounter for screening for lipoid disorders, Z13.228 - Encounter for screening for other metabolic disorders TSH reflex Free T4 05/24/25 E03.9 - Hypothyroidism, unspecified, Z13.0 - Encounter for screening for diseases of the blood and blood-forming organs and certain disorders involving the immune mechanism, Z13.220 - Encounter for screening for lipoid disorders, Z13.228 - Encounter for screening for other metabolic disorders Lipid Panel 05/24/25 E03.9 - Hypothyroidism, unspecified, Z13.0 - Encounter for screening for diseases of the blood and blood-forming organs and certain disorders involving the immune mechanism, Z13.220 - Encounter for screening for lipoid disorders, Z13.228 - Encounter for screening for other metabolic disorders Hemoglobin A1c 05/24/25 E03.9 - Hypothyroidism, unspecified, Z13.0 - Encounter for screening for diseases of the blood and blood-forming organs and certain disorders involving the immune mechanism, Z13.220 - Encounter for screening for lipoid disorders, Z13.228 - Encounter for screening for other metabolic disorders Medications: New fluoxetine (Prozac) Take one tab oral daily for 14 days then increase to 20mg 10 mg PO DAILY 14 caps 0RF fluoxetine 20 mg PO DAILY 90 caps 1RF lorazepam 1 mg PO DAILY PRN 30 tabs 3RF anxiety
[2025-05-24 15:05] VITALS: BP 118/72; PULSE 73; RESP 14; O2SAT 97; BMI 34.2
== END 2025-05-24 15:39 | disposition home or self-care (01) ==
LOC: HO.HMCFM 14:57
PROVIDERS: PCP Internal Medicine; Visit Provider Internal Medicine
DX: F41.9 Anxiety disorder, unspecified (principal)

== ENCOUNTER → 2025-05-24 14:56 | Outpatient (BNVA) | payer OTHER, SELFPAY | PROVIDERS: PCP Internal Medicine; Visit Provider Internal Medicine | DX: F41.9 Anxiety disorder, unspecified (principal); E03.9 Hypothyroidism, unspecified; M25.521 Pain in right elbow; M25.519 Pain in unspecified shoulder; Z79.899 Other long term (current) drug therapy; Z13.31 Encounter for screening for depression; Z13.39 Encounter for screening examination for other mental health and behavioral disorders | CPT/HCPCS: 96127; 99212 ==

== ENCOUNTER 2025-06-17 12:48 | Outpatient (REF) | payer OTHER, SELFPAY ==
[2025-06-17 14:18] LABS: MANUAL DIFF FLAG NO
[2025-06-17 14:31] LABS: Hematocrit 39.1 % (37.0-47.0); Hemoglobin 12.6 g/dl (12.0-16.0); Imm Gran Abs Auto 0.03 X10*3/uL (0.00-0.03); Imm Gran Pct Auto 0.4 % (0.0-0.4); Lymphocytes Absolute Auto 1.5 X10*3/uL (1.2-4.9); Mean Corpuscular HGB Conc 32.2 g/dl (31.0-35.0); Mean Corpuscular Hemoglobin 28.7 pg (27.0-33.0); Mean Corpuscular Volume 89.1 fL (80.0-98.0); NRBC Abs Auto 0.000 X10*3/uL (0.0-0.012); NRBC Pct Auto 0.0 /100WBC (0.0-0.2); Platelet Count 279 X10*3/uL (160-400); Red Blood Count 4.39 X10*6/uL (4.20-5.50); White Blood Count 7.6 X10*3/uL (4.8-10.8)
[2025-06-17 15:06] LABS: Alanine Aminotransferase 21 U/L (0-31); Albumin Level 4.1 g/dL (3.5-5.0); Alkaline Phosphatase 53 U/L (39-117); Anion Gap 9 (12-20); Aspartate Amino Transferase 21 U/L (5-31); Blood Urea Nitrogen 22 mg/dL (9-16); Calcium 8.6 mg/dL (8.4-10.2); Carbon Dioxide 26 mmol/L (22-29); Chloride 108 mmol/L (96-108); Cholesterol 156 mg/dL (<200); Estimated Glomerular Filt Rate > 60; HDL Cholesterol 70 mg/dL (>40); Potassium 4.2 mmol/L (3.3-5.1); Sodium 139 mmol/L (135-145); Total Protein 6.9 g/dL (6.5-8.0); Triglycerides 73 mg/dL (<150)
[2025-06-17 17:59] LABS: Free T4 (Free Thyroxine) 1.33 ng/dL (0.71-1.85)
== END 2025-06-17 12:49 | disposition home or self-care (01) ==
LOC: HO.WFDLDS 12:48
PROVIDERS: Visit Provider Internal Medicine
DX: Z13.220 Encounter for screening for lipoid disorders (principal); Z13.228 Encounter for screening for other metabolic disorders; Z13.0 Encounter for screening for diseases of the blood and blood-forming organs and certain disorders involving the immune mechanism; E03.9 Hypothyroidism, unspecified
CPT/HCPCS: 36415; 80053; 80061; 83036; 84439; 84443; 85025

== ENCOUNTER 2025-06-24 10:31 | Outpatient (AMB) | payer OTHER, SELFPAY ==
--- NOTE | 2025-06-24 10:37 | MHC.PC.OV ---
Vital Signs 06/24/25 10:39 Height 5 ft 4 in Weight 203 lb BMI 34.8 BP 106/62 Blood Pressure Location Rt brachial Position Sitting Respiration 14 Pulse 82 Pulse Source Pulse Oximeter Temp 98 F Temp Source Oral Pulse Oximetry (%) 98 Oxygen Delivery Method Room Air Intake Visit Reasons: Annual PE (rs from 03/05) Intake Note: Physical Law Clerk Required: No Allergies cefaclor (From Ceclor) Allergy (Mild, Verified 06/24/25 10:37) Hives propranolol Allergy (Mild, Verified 06/24/25 10:37) Vomiting Tobacco use date assessed: 06/24/25 Dental Screening Dental Screen Date: 05/24/25 HPI HPI Comments History of Present Illness Details Patient is a 49 female with a past medical history with cervical radiculopathy, right knee pain, right elbow pain, history of OA, history of thyroid cancer, anxiety presenting for CPE Anxiety: much improved since back on prozac x one month. Patient reports increased anxiety over the past 6 months. She has been on and off SSRIs in the past. For quite a long time she was doing well on prozac. She believes she had gone as high as 60mg in the past. She transitioned to wellbutrin at some and did not tolerate this and decided to just stop the medications. Chronic pain OA -Increased low back pain x 2-3 months. Her dogs pulled very hard on the leash during walking. She has low back pain with left buttock pain and radiation down to the foot -knee pain she previously followed with [facility] for knee pain. She has received injections in the past. She has had MRI in the past. At her last visit she asked for a referral to [facility] to review MRI buy this wasn't completed Neck pain: History of ACDF at C5-C6 and C6-C7. She continues with paranoid spine and support. She has seen [facility], undergone PT, facet injections. Has gabapentin. Not taking tramadol. She is also taking ibuprofen extra-strength Tylenol daily. We repeated the MRI of her cervical spine. Impression unchanged with previous study. Neurosurgery was seen and do not see any role for surgical intervention. 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 History of carpal tunnel. She has had an injection of the right elbow but advised against another because it looked like there was some muscular atrophy. -Shoulder pain -followed with Dr Johnson Hypothyroid: Post surgical papillary thyroid cancer. Now following with Endocrine. On levothyroxine. Last TSH 0.05 Vertigo: Lessened. MRI brain 03/2024 was unremarkable. Mammogram: Wasronel Hebert. UTD Didnt complete last Cologuard-resent ROS see HPI PHYSICAL EXAM: GENERAL: Alert and oriented x 3. NAD EYES: EOMI. Anicteric. HENT: Moist mucous membranes. No scleral icterus. No cervical lymphadenopathy. LUNGS: Clear to auscultation bilaterally. CARDIOVASCULAR: Regular rate and rhythm. No murmur. No JVD. ABDOMEN: Soft, non-tender +bs EXTREMITIES: No edema. Non-tender. MSK: unable to abduct left arm SKIN: No rashes or lesions. Warm. NEUROLOGIC: No focal neurological deficits. CN II-XII grossly intact PSYCHIATRIC: Cooperative. 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 Current occupational exposures/hazards: No Cognitive needs: No Hearing needs: No Vision needs: Yes Questionnaire Thrive Questionnaire Date Thrive assessed: 06/24/25 I am a: Patient What is your living situation today?: I have a steady place to live Within the past 12 months, did the food you bought not last and you didn't have the money to get more?: Never true Within the past 12 months, did you worry whether your food would run out before you got money to buy more?: Never true Do you have trouble paying for medicines?: No Do you have trouble getting transportation to medical appointments?: No Do you have trouble paying your heating and electricity bill?: No Do you have trouble taking care of your child, family member or friend?: No Do you have trouble with day-to-day activities such as bathing, preparing meals, shopping, managing finances, etc.?: No Are you currently unemployed and looking for a job?: No Are you interested in more education?: No Please select the resources that you would like help with: None Currently or been in a relationship where the following occur: I choose not to answer THRIVE Score: 0 AUDIT C Alcohol Use Questionnaire (AUDIT-C) 1. How often do you have a drink containing alcohol?: 2-4 times a month 2. How many drinks containing alcohol do you have on a typical day when you are drinking?: 3 or 4 3. How often do you have six or more drinks on one occasion?: Never Total Score: 3 EDELMIRA-7 AMB Questionnaire EDELMIRA-7 Date EDELMIRA - 7 assessed: 05/24/25 Source: Developed by Drs. Jb Smith, Megan Knott, Mg Johnson and colleagues, with an educational eddie from [employer]. Physical exam (Primary Care) Vital Signs: Last Vital Signs Temp 98 F 06/24/25 10:39 Pulse 82 06/24/25 10:39 Resp 14 06/24/25 10:39 BP 106/62 06/24/25 10:39 Pulse Ox 98 06/24/25 10:39 Oxygen Delivery Method Room Air 06/24/25 10:39 BMI result Body Mass Index 34.8 Tobacco/Smoking Status: Tobacco use Status Tobacco use date assessed 06/24/25 06/24/25 10:41 Patient Tobacco Use Status Never used Tobacco 06/24/25 10:52 e-Cigarette/Vaping Use Never Used 06/24/25 10:52 Thrive Assessment: Date of Thrive Assessment Date Thrive assessed 06/24/25 06/24/25 10:52 Currently or been in a relationship where the following occur: I choose not to answer Coding Level of Care Code Est Pt Prev Care 40-64y(50271) Diagnoses Physical exam Z00.00 Lumbar radiculopathy M54.16 Anxiety F41.9 Hypothyroidism, unspecified type E03.9 Hypothyroidism type: unspecified Assessment & Plan Assessment & Plan (1) Physical exam: Code(s): Z00.00 - Encounter for general adult medical examination without abnormal findings (2) Lumbar radiculopathy: Code(s): M54.16 - Radiculopathy, lumbar region Category: Medical (3) Anxiety: Code(s): F41.9 - Anxiety disorder, unspecified Category: Medical (4) Hypothyroid: Code(s): E03.9 - Hypothyroidism, unspecified Category: Medical Qualifiers: Hypothyroidism type: unspecified Qualified Code(s): E03.9 - Hypothyroidism, unspecified Plan 49 year old for CPE Interval history reviewed Preventive measures for age discussed Increase low back pain-refer ortho. Prednisone x5 days. Bacoflen prn daytime, gabapentin prn bedtime Hypothyroid-TSH suppressed. history of malignancy Orders: Referrals Orthopedics Referral M54.16 - Radiculopathy, lumbar region Cologuard Test Z12.11 - Encounter for screening for malignant neoplasm of colon, Z12.12 - Encounter for screening for malignant neoplasm of rectum Medications: New baclofen 10 mg PO TID 270 tabs 3RF prednisone 40 mg (2 x 20 mg) PO DAILY 10 tabs 0RF gabapentin 600 mg (2 x 300 mg) PO BEDTIME 180 caps 3RF Refilled levothyroxine 200 mcg PO DAILY 90 tabs 3RF
[2025-06-24 10:39] VITALS: BP 106/62; PULSE 82; RESP 14; TEMP 36.6; O2SAT 98; BMI 34.8
--- OUTSIDE RECORDS SUMMARY | 2025-06-24 17:34 | XMS_ITS | Patient Health Record ---
Author Organization [facility] Address [address] [place] [address] Care Team Providers Care Preventive Medicine Physician Name Role Phone VETOJUVENALCORNELIUS BURGER Primary Care Provide r [phone] Allergies Allergen (clinical drug ingredient) Drug/Non Drug Allergy documented on EMR Reaction Allergy Type Onset Date Status propranolol PROPANOLOL (uncoded) Severe Vomiting Allergy Active cefaclor Cefaclor Hives Drug Allergy Active predniSONE dizziness Drug Allergy Active Reason For Referral No Information Medications Medication SIG (Take, Route, Frequency, Duration) Notes Start Date End Date Status traMADol HCl 50 MG Tablet 1 tab(s) orally every 6 hours prn pain; Duration: 7 days 08/12/2021 Active Gabapentin 300 MG Capsule 1 cap(s) orally 3 times a day; Duration: 30 day(s) 03/17/2021 Active Aleve 220 MG Tablet 1 tab(s) orally every 12 hours Active Cyclobenzaprine HCl 10 MG Tablet 1 tab(s) orally 2 times a day Active Nitrofurantoin Macrocrystal 100 MG Capsule 1 cap(s) orally 2 times a day; Duration: 7 days 11/04/2020 Unknown predniSONE 20 MG Tablet 2 tab(s) orally once a day; Duration: 3 day(s) 03/17/2021 Not-Taking Ativan 0.5 MG Tablet one tab one prior to flight; may repeat x 1 orally once/prn Not-Taking Levothyroxine Sodium 200 MCG Tablet 1.5 tablet 1 day a week and 1 tablet 6 days a week orally once a day; Duration: 90 days labs and follow up overdue Active Immunizations Vaccine Route Administration Date Status Comme nts Influenza Vaccine[158] IM Intramuscular 05/14/2021 Adminis tered TDAP IM Intramuscular 06/01/2021 Administered Social History Tobacco Use: Social History Observation Description Date Details (start date - stop date) Former Smoker NA - NA Social History Tobacco Use: Social Info Question Answer Notes Smoking Are you a: former smoker How long has it been since you last smoked? 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 asbestos exposure: no Past [facility] [place] 08/[place], [place] alcohol use: yes wine x4/week drug use: no Hobbies/Exercise habits: Aerobic s, Yoga, Walking Coffee/Tea/Soda: yes 2 Coffee, daily , 1/2 cup of tea daily Marital Status - now en gaged experience no Living with oldest son and g randfather who has Alzheimer's Pets dog smokers in household yes 1/2 pk/day, quit 2019 Section Notes: Has a fiance Last Pap 08/2020 Last Mammo 09/2020 HAs a fiance Has a fiance Last Pap 08/2020 Last Mammo 09/2020 HAs a fiance Has a fiance Last Pap 08/2020 Last Mammo 09/2020 Has a fiance Last Pap 08/2020 Last Mammo 09/2020 Has a fiance Last Pap 08/2020 Last Mammo 09/2020 Has a fiance Last Pap 08/2020 Last Mammo 09/2020 Has a fiance Has a fiance HAs a fiance Problems Problem Type SNOMED Code ICD Code Onset Dates Problem Status W/U Status Risk Notes Problem Hypothyroidism (54713701) Hypothyroidism (acquired) (244.9) Active confirmed Problem Neck pain (37830742) Neck pain (M54.2) Active confirmed Problem Shoulder joint pain (638063629) Pain in left shoulder (M25.512) Active confirmed Problem Chronic pain (81132691) Other chronic pain (G89.29) Active confirmed Problem Pain of right shoulder region (finding) (7707620765) Pain in right shoulder (M25.511) Active confirmed Problem Postoperative hypothyroidism (46137233) Postoperative hypothyroidism (E89.0) Active confirmed Problem Intolerant of cold (26482827) Cold intolerance (R68.89) Active confirmed Problem 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) Atypical nevi (D22.9) Active confirmed Problem Sciatica (46187945) Bilateral low back pain with left-sided sciatica, unspecified chronicity (M54.42) Active confirmed Problem Spinal cord compression due to degenerative disorder of spinal column (835503318) Spinal cord compression due to degenerative disorder of spinal column (M47.10) Active confirmed Plan Of Treatment Future Test Test Name Order Date TSH WITH REFLEX TO FT4 09/02/2021 Insurance Providers Payer Name Payer Address Payer Phone Subscriber Number Group Number Insured Name Patient Relationship to Insured Coverage Start Date Coverage End Date [employer] [address] [place] [phone] [id number] ABHIJIT WEBER Self - patient is the insured [facility] [employer] [address] [place] [phone] [id number] ABHIJIT WEBER Self - patient is the insured 3 Medical (General) History Medical History History ICD Code Allergy Arthritis Depression Pneumonia Thyroid Disease :incidental Rt thyroid nodule w/ FNA suspicious for PTC in early 2012. 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 Postsurgical hypothyroidism A2 Gallbladder Headaches/Migraines Hx of Pna Hyperthyroidism Prednisone intolerance-causes moodiness and irritability Arthritis in Left Thumb COVID 19 Surgical History Surgery Date(Month/Year) [facility]- Gallbladder Removal 08/09/2020 tubal ligation 10/30 Total thyroidectomy-Dr Argueta 12/28 C spine fusion-Dr Guzmán 05/29 Carpal Tunnel Right hand 01/24 Hospitalization History Reason Date(Month/Year) [facility]- Gall Bladder 1
== END 2025-06-24 11:04 | disposition home or self-care (01) ==
LOC: HO.HMCFM 10:32
PROVIDERS: PCP Internal Medicine; Visit Provider Internal Medicine
DX: Z00.00 Encounter for general adult medical examination without abnormal findings (principal); M54.16 Radiculopathy, lumbar region; F41.9 Anxiety disorder, unspecified; E03.9 Hypothyroidism, unspecified

== ENCOUNTER → 2025-06-24 10:31 | Outpatient (BNVA) | payer OTHER, SELFPAY | PROVIDERS: PCP Internal Medicine; Visit Provider Internal Medicine | DX: Z00.00 Encounter for general adult medical examination without abnormal findings (principal); M54.16 Radiculopathy, lumbar region; F41.9 Anxiety disorder, unspecified; E03.9 Hypothyroidism, unspecified; Z13.31 Encounter for screening for depression | CPT/HCPCS: 96127; 99396 ==